=== PATIENT | female | born 1970 | race Caucasian/White ===

== ENCOUNTER → 2024-05-18 19:44 | Outpatient (REF) | payer OTHER, SELFPAY | LOC: MRI 3T 19:44 | PROVIDERS: ATTENDING PHYSICIAN Psychiatry & Neurology Neurology; FAMILY PHYSICIAN Family Medicine | DX: R90.89 Other abnormal findings on diagnostic imaging of central nervous system (principal) | CPT/HCPCS: 70553; A9575 ==

== ENCOUNTER → 2024-10-11 13:42 | Outpatient (REF) | payer OTHER, SELFPAY | LOC: WDC 13:42 | PROVIDERS: ATTENDING PHYSICIAN Family Medicine | DX: Z12.31 Encounter for screening mammogram for malignant neoplasm of breast (principal); N64.4 Mastodynia | CPT/HCPCS: 76642; 77063; 77067 ==

== ENCOUNTER → 2025-04-12 09:02 | Outpatient (REF) | payer OTHER, SELFPAY | LOC: WDC 09:02 | PROVIDERS: ATTENDING PHYSICIAN Family Medicine | DX: N64.4 Mastodynia (principal) | CPT/HCPCS: 76642; 77065 ==

== ENCOUNTER → 2025-04-16 10:17 | Outpatient (REF) | payer OTHER, SELFPAY ==
--- NOTE | 2025-04-16 13:34 | OID.BR.INTR ---
OID Breast Navigator - Initial
- -
Date of Contact: 04/16/25
Met with patient. Will follow up as needed per protocol.
== END ==
LOC: WDC 10:17
PROVIDERS: ATTENDING PHYSICIAN Family Medicine
DX: N63.21 Unspecified lump in the left breast, upper outer quadrant (principal)
CPT/HCPCS: 19083; 88305